=== PATIENT | male | born 1975 | race Caucasian/White ===

== ENCOUNTER → 2020-07-27 | Outpatient (CLI) | payer OTHER ==
--- NOTE | 2020-07-28 08:53 | CT ---
EXAMINATION TYPE: CT soft tissue neck w con DATE OF EXAM: 07/27/2020 COMPARISON: None HISTORY: right sided neck swelling CT DLP: 552.3 mGycm CONTRAST: Patient injected with 100 mL of Isovue 300. TECHNIQUE: Axial images at 3 mm thick sections. Reconstructed images in the coronal plane and sagitt al plane are reviewed. FINDINGS: Limited CT sections are obtained the lung apices. The lung apices appear clear. CT neck: The torus tubarius and fossa of Rosenmuller are normal. Senior Statistical Programmer spaces are normal. Para nasal sinuses and mastoid air cells are clear. There is a 1.9 x 2.7 x 3.6 cm hypodensity measuring 37 Hounsfield units in the right jugulodigastric region just anterior to the sternocleidomastoid. 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 Diffe rential diagnosis could include lymphocele. Parotid glands appear normal and symmetrical. Submandibular glands, are normal. Parapharyngeal spac es are normal. No suspicious adenopathy is evident. The hypopharynx appears within normal limits. Vocal cord level appear symmetrical. There are hypodensities within the bilateral thyroid lobes. Correlation with thyroid ultrasound is re commended. Subglottic airway is normal. Osseous structures are normal. IMPRESSIONS: 1. Right second branchial cleft cyst. 2. Thyroid hypodensities, ultrasound thyroid recommended.
== END | disposition home or self-care (01) ==
LOC: RADCTMAIN 19:01
PROVIDERS: ATTEND Otolaryngology
DX: Q18.0 Sinus, fistula and cyst of branchial cleft (principal); E07.9 Disorder of thyroid, unspecified
CPT/HCPCS: 70491; Q9967

== ENCOUNTER → 2020-08-19 | Outpatient (CLI) | payer OTHER ==
--- NOTE | 2020-08-20 08:19 | US ---
EXAMINATION TYPE: US thyroid st tissue head/neck DATE OF EXAM: 08/19/2020 COMPARISON: NONE CLINICAL HISTORY: E04.[address] showed nodules GLAND SIZE: Right Lobe: 5.2 x 1.2 x 1.6 cm Overall Parenchyma: heterogenous Left Lobe: 4.6 x 1.3 x 1.8 cm Overall Parenchyma: heterogeneous Isthmus Thickness: 0.4 cm NODULES RIGHT: # of nodules measured on right: 1 1. 1.1 X 1.1 x 0.6 cm, lower cystic or almost completely cystic nodule, which is wider than tall, w ith smooth margins, with echogenic foci. This is most suggestive of a colloid cyst. Prior size: FLORICULTURIST LEFT: # of nodules measured on left: 1 1. 0.8 X 0.7 x 0.6 cm, lower cystic or almost completely cystic, nodule, which is wider than tall, with smooth margins, with echogenic foci. This is most suggestive of a colloid cyst. Prior size: FLORICULTURIST ISTHMUS: # of nodules measured in the isthmus: 0 Bilateral neck scanned, no evidence of lymphadenopathy. IMPRESSION: 1. Bilateral colloid cysts, as described above. 2017 ACR TI-RADS LEVEL: 1 *Highest TI-RADS level nodule reported
== END | disposition home or self-care (01) ==
LOC: RADUSWWP 16:21
PROVIDERS: ATTEND Otolaryngology
DX: E04.1 Nontoxic single thyroid nodule (principal)
CPT/HCPCS: 76536